=== PATIENT | male | born 1955 | race Two or more races ===

== ENCOUNTER 2020-07-06 06:57 | Inpatient (IN) | payer SELFPAY ==
[~2020-07-06] VITALS: Ht 182.9 cm; Wt 102.5 kg
[~2020-07-06 06:57] MED LIST: CEPH-37; [UNRECOGNIZED DRUG - CODE]
[2020-07-06 09:28] LABS: Basophils # (auto) 0 10 ^3/uL (0-0.2); Basophils % (auto) 0.3 % (0.0-2.0); Eosinophils # (auto) 0 10 ^3/uL (0-0.8); Eosinophils % (auto) 0.1 % (0.0-7.0); Hematocrit 39.1 % (41.0-53.0); Hemoglobin 12.8 g/dL (13.5-17.5); Lymphocytes # (auto) 1.1 10 ^3/uL (0.4-5.4); Lymphocytes % (auto) 28.1 % (10.0-50.0); Mean Corpuscular Hemoglobin 28.3 pg (28.0-32.0); Mean Corpuscular Hgb Conc. 32.8 g/dL (32.0-36.0); Mean Corpuscular Volume 86.2 fL (80.0-100.0); Monocytes # (auto) 0.3 10 ^3/uL (0-1.3); Monocytes % (auto) 6.9 % (0.0-12.0); Neutrophils # (auto) 2.4 10 ^3/uL (1.6-8.6); Neutrophils % (auto) 64.6 % (37.0-80.0); Nucleated Red Blood Cells % 0.1 %; Platelet Count (auto) 151 10^3/uL (140-450); Red Blood Cells 4.53 10^6/uL (4.5-5.90); Red Cell Distribution Width 14.3 % (11.8-14.3); White Blood Cell 3.8 10^3/uL (4.4-10.8)
[2020-07-06 09:47] LABS: Albumin 3.6 g/dL (3.4-5.0); Calcium 8.1 mg/dL (8.5-10.1); Potassium 3.7 mmol/L (3.5-5.1)
[2020-07-06 09:50] LABS: BUN/Creatinine Ratio 10.2; Bilirubin, Total 0.5 mg/dL (0.2-1.0); Total Protein 7.7 g/dL (6.4-8.2)
[2020-07-06 09:58] LABS: CRP High Sensitivity 2.73 mg/dL (< 0.3)
[2020-07-06] MEDS ORDERED: DOXYCYCLINE 100MG/250ML 250 ML IV SCH (15:15)
[2020-07-06] MEDS ORDERED: ONDANSETRON HCL 4 MG/2 ML VIAL IV PRN ×2 (15:15→21:30)
[2020-07-06] MEDS ORDERED: ACETAMINOPHEN 500 MG TAB PO PRN ×2 (15:15→21:15)
[2020-07-06] MEDS ORDERED: NITROGLYCERIN 0.4 MG SL TAB SL PRN ×2 (15:15→21:15)
[2020-07-06] MEDS ORDERED: MORPHINE SULF INJ 2 MG/ML SYRINGE 1ML IV PRN ×4 (15:15→21:30)
[2020-07-06] MEDS ORDERED: HYDROcodone-ACET 5/325MG TAB PO PRN ×2 (15:15→21:30)
[2020-07-06 15:46] LABS: Magnesium 2.1 mg/dL (1.6-2.6)
[2020-07-06 15:56] VITALS: BP 161/101
[2020-07-06 17:35] VITALS: BP 145/101
[2020-07-06] MEDS: BUDESONIDE (INHALATION) 180 MCG IH IN SCH (21:17)
[2020-07-06] MEDS: ALBUTEROL SULF HFA 90MCG INH 200DOSE IN SCH (21:18)
[2020-07-06] MEDS ORDERED: ALBUTEROL SULF HFA 90MCG INH 200DOSE IN SCH (22:00)
[2020-07-06] MEDS: DOXYCYCLINE 100MG/250ML 250 ML IV SCH (22:00)
[2020-07-06] MEDS ORDERED: BUDESONIDE (INHALATION) 180 MCG IH IN SCH (22:00)
[2020-07-06 22:01] VITALS: BP 150/99
[2020-07-07 05:45] VITALS: BP 144/92
[2020-07-07] MEDS: ALBUTEROL SULF HFA 90MCG INH 200DOSE IN SCH ×3 (06:00→22:46)
[2020-07-07] MEDS: BUDESONIDE (INHALATION) 180 MCG IH IN SCH ×2 (07:17→22:50)
[2020-07-07 08:50] VITALS: BP 131/92
[2020-07-07] MEDS: DOXYCYCLINE 100MG/250ML 250 ML IV SCH ×2 (09:40→22:00)
[2020-07-07] MEDS: FAMOTIDINE 20 MG TAB PO SCH (09:40)
[2020-07-07] MEDS: CHOLECALCIFEROL (VITD3) 2,000 UNIT CAP PO SCH (09:40)
[2020-07-07] MEDS: ASCORBIC ACID 1,000 MG TAB PO SCH (09:40)
[2020-07-07] MEDS: DexAMETHasone SOD PHOS 10MG/1ML VIAL INJ IV SCH (09:40)
[2020-07-07] MEDS ORDERED: FAMOTIDINE 20 MG TAB PO SCH (10:00)
[2020-07-07] MEDS ORDERED: DexAMETHasone SOD PHOS 10MG/1ML VIAL INJ IV SCH (10:00)
[2020-07-07] MEDS ORDERED: ASCORBIC ACID 1,000 MG TAB PO SCH (10:00)
[2020-07-07] MEDS ORDERED: CHOLECALCIFEROL (VITD3) 2,000 UNIT CAP PO SCH (10:00)
[2020-07-07] MEDS ORDERED: ZINC SULFATE 220mg CAP or TAB PO SCH (10:00)
[2020-07-07] MEDS ORDERED: ENOXAPARIN SOD 40 MG/0.4 ML SYRINGE SC SCH ×2 (10:00)
[2020-07-07] MEDS: ZINC SULFATE 220mg CAP or TAB PO SCH (10:03)
[2020-07-07] MEDS ORDERED: FUROSEMIDE 40 MG/4 ML VIAL IV ONE (11:15)
[2020-07-07] MEDS ORDERED: cefTRIAXone 1GM/50ML D5W 50 ML IV ONE (11:15)
[2020-07-07 12:45] VITALS: BP 143/92
[2020-07-07 16:51] VITALS: BP 143/82
[2020-07-07] MEDS ORDERED: REMDESIVIR 200 MG in NS 210ml LOADING DOSE ADULT IV ONE (19:00)
[2020-07-07] MEDS: ENOXAPARIN SOD 40 MG/0.4 ML SYRINGE SC SCH (22:00)
[2020-07-07 22:04] VITALS: BP 142/71
[2020-07-08 05:22] VITALS: BP 145/99
[2020-07-08] MEDS: ALBUTEROL SULF HFA 90MCG INH 200DOSE IN SCH ×3 (06:25→23:07)
[2020-07-08] MEDS: BUDESONIDE (INHALATION) 180 MCG IH IN SCH ×2 (06:26→23:07)
[2020-07-08 07:45] LABS: Basophils # (auto) 0 10 ^3/uL (0-0.2); Basophils % (auto) 0.3 % (0.0-2.0); Eosinophils # (auto) 0 10 ^3/uL (0-0.8); Hematocrit 38.7 % (41.0-53.0); Lymphocytes # (auto) 1.4 10 ^3/uL (0.4-5.4); Lymphocytes % (auto) 25.4 % (10.0-50.0); Mean Corpuscular Hemoglobin 28.8 pg (28.0-32.0); Mean Corpuscular Hgb Conc. 33.7 g/dL (32.0-36.0); Mean Corpuscular Volume 85.5 fL (80.0-100.0); Monocytes # (auto) 0.3 10 ^3/uL (0-1.3); Neutrophils # (auto) 3.6 10 ^3/uL (1.6-8.6); Neutrophils % (auto) 68.3 % (37.0-80.0); Nucleated Red Blood Cells % 0.1 %; Platelet Count (auto) 177 10^3/uL (140-450); Red Blood Cells 4.53 10^6/uL (4.5-5.90); White Blood Cell 5.3 10^3/uL (4.4-10.8)
[2020-07-08 08:07] LABS: Albumin 3.2 g/dL (3.4-5.0); Calcium 8.1 mg/dL (8.5-10.1); Potassium 3.7 mmol/L (3.5-5.1)
[2020-07-08 08:23] LABS: BUN/Creatinine Ratio 15.8; Bilirubin, Total 0.4 mg/dL (0.2-1.0); CRP High Sensitivity 4.48 mg/dL (< 0.3); Total Protein 7.2 g/dL (6.4-8.2)
[2020-07-08 09:00] VITALS: BP 141/88
[2020-07-08] MEDS: DexAMETHasone SOD PHOS 10MG/1ML VIAL INJ IV SCH (10:13)
[2020-07-08] MEDS: DOXYCYCLINE 100MG/250ML 250 ML IV SCH ×2 (10:13→21:48)
[2020-07-08] MEDS: ZINC SULFATE 220mg CAP or TAB PO SCH (10:13)
[2020-07-08] MEDS: FAMOTIDINE 20 MG TAB PO SCH (10:13)
[2020-07-08] MEDS: ENOXAPARIN SOD 40 MG/0.4 ML SYRINGE SC SCH ×2 (10:14→21:49)
[2020-07-08] MEDS: ASCORBIC ACID 1,000 MG TAB PO SCH (10:14)
[2020-07-08] MEDS: CHOLECALCIFEROL (VITD3) 2,000 UNIT CAP PO SCH (10:14)
[2020-07-08] MEDS: FUROSEMIDE 40 MG/4 ML VIAL IV SCH (10:15)
[2020-07-08] MEDS: cefTRIAXone 1GM/50ML D5W 50 ML IV SCH (10:16)
[2020-07-08 13:00] VITALS: BP 133/86
[2020-07-08 16:46] VITALS: BP 135/86
[2020-07-08] MEDS: REMDESIVIR 100mg in NS 230ml DAILYx4DAYS (NO VENT) IV SCH (17:23)
[2020-07-08 20:00] VITALS: BP 136/77
[2020-07-09] MEDS: ALBUTEROL SULF HFA 90MCG INH 200DOSE IN SCH ×3 (06:20→21:36)
[2020-07-09] MEDS: BUDESONIDE (INHALATION) 180 MCG IH IN SCH ×2 (06:21→21:36)
[2020-07-09 07:11] LABS: Albumin 3.3 g/dL (3.4-5.0); Calcium 8.4 mg/dL (8.5-10.1); Potassium 3.7 mmol/L (3.5-5.1)
[2020-07-09 07:16] LABS: BUN/Creatinine Ratio 20.2; Bilirubin, Total 0.3 mg/dL (0.2-1.0); Total Protein 7.3 g/dL (6.4-8.2)
[2020-07-09 09:00] VITALS: BP 142/87
[2020-07-09] MEDS: DexAMETHasone SOD PHOS 10MG/1ML VIAL INJ IV SCH (10:13)
[2020-07-09] MEDS: ZINC SULFATE 220mg CAP or TAB PO SCH (10:13)
[2020-07-09] MEDS: cefTRIAXone 1GM/50ML D5W 50 ML IV SCH (10:13)
[2020-07-09] MEDS: DOXYCYCLINE 100MG/250ML 250 ML IV SCH ×2 (10:13→22:17)
[2020-07-09] MEDS: ENOXAPARIN SOD 40 MG/0.4 ML SYRINGE SC SCH ×2 (10:14→22:17)
[2020-07-09] MEDS: ASCORBIC ACID 1,000 MG TAB PO SCH (10:14)
[2020-07-09] MEDS: CHOLECALCIFEROL (VITD3) 2,000 UNIT CAP PO SCH (10:14)
[2020-07-09] MEDS: FAMOTIDINE 20 MG TAB PO SCH (10:14)
[2020-07-09] MEDS: FUROSEMIDE 40 MG/4 ML VIAL IV SCH (10:15)
[2020-07-09 12:42] VITALS: BP 142/87
[2020-07-09 17:00] VITALS: BP 149/85
[2020-07-09] MEDS: REMDESIVIR 100mg in NS 230ml DAILYx4DAYS (NO VENT) IV SCH (17:41)
[2020-07-09 22:00] VITALS: BP 148/92
[2020-07-10 05:00] VITALS: BP 150/91
[2020-07-10] MEDS: ALBUTEROL SULF HFA 90MCG INH 200DOSE IN SCH ×3 (06:19→23:39)
[2020-07-10] MEDS: BUDESONIDE (INHALATION) 180 MCG IH IN SCH ×2 (06:19→23:38)
[2020-07-10 09:00] VITALS: BP 157/74
[2020-07-10] MEDS: cefTRIAXone 1GM/50ML D5W 50 ML IV SCH (09:40)
[2020-07-10] MEDS: DexAMETHasone SOD PHOS 10MG/1ML VIAL INJ IV SCH (09:40)
[2020-07-10] MEDS: DOXYCYCLINE 100MG/250ML 250 ML IV SCH ×2 (09:41→20:40)
[2020-07-10] MEDS: FUROSEMIDE 40 MG/4 ML VIAL IV SCH (09:41)
[2020-07-10] MEDS: ASCORBIC ACID 1,000 MG TAB PO SCH (09:41)
[2020-07-10] MEDS: ZINC SULFATE 220mg CAP or TAB PO SCH (09:41)
[2020-07-10] MEDS: FAMOTIDINE 20 MG TAB PO SCH (09:41)
[2020-07-10] MEDS: ENOXAPARIN SOD 40 MG/0.4 ML SYRINGE SC SCH ×2 (09:42→20:40)
[2020-07-10] MEDS: CHOLECALCIFEROL (VITD3) 2,000 UNIT CAP PO SCH (09:42)
[2020-07-10 13:00] VITALS: BP 156/99
[2020-07-10] MEDS: REMDESIVIR 100mg in NS 230ml DAILYx4DAYS (NO VENT) IV SCH (17:54)
[2020-07-10 22:00] VITALS: BP 144/88
[2020-07-11 05:00] VITALS: BP 156/93
[2020-07-11 05:55] LABS: Potassium 3.9 mmol/L (3.5-5.1)
[2020-07-11 06:05] LABS: Albumin 3.3 g/dL (3.4-5.0); Bilirubin, Total 0.5 mg/dL (0.2-1.0); Calcium 8.5 mg/dL (8.5-10.1); Total Protein 7.2 g/dL (6.4-8.2)
[2020-07-11] MEDS: ALBUTEROL SULF HFA 90MCG INH 200DOSE IN SCH ×2 (07:19→14:50)
[2020-07-11] MEDS: BUDESONIDE (INHALATION) 180 MCG IH IN SCH (07:19)
[2020-07-11 08:00] VITALS: BP 160/99
[2020-07-11 09:23] VITALS: BP 160/99
[2020-07-11] MEDS: DexAMETHasone SOD PHOS 10MG/1ML VIAL INJ IV SCH (10:14)
[2020-07-11] MEDS: ZINC SULFATE 220mg CAP or TAB PO SCH (10:14)
[2020-07-11] MEDS: cefTRIAXone 1GM/50ML D5W 50 ML IV SCH (10:14)
[2020-07-11] MEDS: FAMOTIDINE 20 MG TAB PO SCH (10:15)
[2020-07-11] MEDS: CHOLECALCIFEROL (VITD3) 2,000 UNIT CAP PO SCH (10:15)
[2020-07-11] MEDS: ENOXAPARIN SOD 40 MG/0.4 ML SYRINGE SC SCH (10:15)
[2020-07-11] MEDS: ASCORBIC ACID 1,000 MG TAB PO SCH (10:15)
[2020-07-11] MEDS: FUROSEMIDE 40 MG/4 ML VIAL IV SCH (10:16)
[2020-07-11 12:54] VITALS: BP 149/90
[2020-07-11] MEDS: REMDESIVIR 100mg in NS 230ml DAILYx4DAYS (NO VENT) IV SCH (14:28)
[2020-07-11 15:55] VITALS: BP 160/99
[2020-07-11 16:37] VITALS: BP 144/89
== END 2020-07-11 17:10 | disposition home or self-care (01) | DRG 177 ==
LOC: ER 06:57 → EDBD 06:57 → TELE-CENTR 06:58 → ER 17:08 → TELE-CENTR 07-10 16:56
PROVIDERS: ADMIT Nurse Practitioner Acute Care; ATTEND Internal Medicine
PROC: XW033E5 Introduction of Remdesivir Anti-infective into Peripheral Vein, Percutaneous Approach, New Technology Group 5 (ICD-10-PCS; principal; 2020-07-07)
DX: U07.1 COVID-19 (principal); J12.89 Other viral pneumonia; D68.59 Other primary thrombophilia; J91.8 Pleural effusion in other conditions classified elsewhere; R73.03 Prediabetes; E66.9 Obesity, unspecified; Z68.30 Body mass index [BMI] 30.0-30.9, adult
CPT/HCPCS: 36415; 71045; 80053; 80061; 82728; 83036; 83605; 83615; 83735; 83880; 85025; 85379; 86141; 86850; 86900; 86901; 87040; 87426; 87804; 94640; 99291; G0378; J0696; J1100; J3490